=== PATIENT | female | born 1990 | race Caucasian/White ===

== ENCOUNTER 2016-12-10 09:08 | Emergency (ER) | payer OTHER ==
[~2016-12-10] VITALS: Ht 160 cm; Wt 87.0 kg
[2016-12-10 09:12] VITALS: Ht 160 cm; Wt 87.0 kg
[2016-12-10] MEDS ORDERED: ONDANSETRON (ODT) 4 MG TAB ODT STA (10:01)
[2016-12-10] MEDS ORDERED: ONDANSETRON 4 MG INJ IV STA (10:19)
--- NOTE | 2016-12-10 10:19 | ERD ---
ER Documentation Chief Complaint Date/Time DATE: 12/10/16 TIME: 10:15 Chief Complaint abd pain with vomiting x 1 day HPI This 26-year-old female who presents the emergency department today complaining of abdominal pain that started yesterday. Patient states she has had some vomiting today. See she had one loose bowel movement this morning. States she is sexually active and uses oral contraceptives. States she has been told she has a problem in her liver. Patient has not taken any medication for the pain denies any fevers or chills. ROS All systems reviewed and are negative except as per history of present illness. Medications Home Meds Active Scripts Ibuprofen* (Motrin*) 600 Mg Tab, 600 MG PO Q6, #30 TAB Prov:SERENA QUINTANA PA-C 12/10/16 Hydrocodone/Acetaminophen ([place] 5-325 Tablet) 1 Each Tablet, 1 TAB PO Q6H Y for PAIN, #12 TAB Prov:SERENA QUINTANA PA-C 12/10/16 Ondansetron Hcl* (Zofran*) 4 Mg Tablet, 4 MG PO Q6H for NAUSEA AND/OR VOMITING, #30 TAB Prov:SERENA QUINTANA PA-C 12/10/16 Allergies Allergies: Coded Allergies: No Known Allergy (Unverified , 12/10/16) Physical Exam Vitals Vital Signs Date Time Temp Pulse Resp B/P Pulse Ox O2 Delivery O2 Flow Rate FiO2 12/10/16 09:12 97.8 75 18 118/75 98 Physical Exam Const: Obese, no acute distress Head: Atraumatic Eyes: Normal Conjunctiva ENT: Normal External Ears, Nose and Mouth. Neck: Full range of motion..~ No meningismus. Resp: Clear to auscultation bilaterally Cardio: Regular rate and rhythm, no murmurs Abd: Soft, generalized periumbilical and left lower quadrant pain, non distended. Normal bowel sounds no right lower quadrant pain. No right upper quadrant pain Skin: No petechiae or rashes Back: No midline or flank tenderness Ext: No cyanosis, or edema Neur: Awake and alert Psych: Normal Mood and Affect Result Diagram: 12/10/16 1012 12/10/16 1012 Results 24 hrs Laboratory Tests Test 12/10/16 10:09 12/10/16 10:12 Urine Color COLORLESS Urine Clarity CLEAR Urine pH 7.0 Urine Specific [place] 1.004 Urine Ketones NEGATIVEmg/dL Urine Nitrite NEGATIVEmg/dL Urine Bilirubin NEGATIVEmg/dL Urine Urobilinogen NEGATIVEmg/dL Urine Leukocyte Esterase NEGATIVELeu/ul Urine Hemoglobin NEGATIVEmg/dL Urine Glucose NEGATIVEmg/dL Urine Total Protein NEGATIVEmg/dl White Blood Count 10.810^3/ul Red Blood Count 5.2910^6/ul Hemoglobin 14.1g/dl Hematocrit 43.5% Mean Corpuscular Volume 82.2fl Mean Corpuscular Hemoglobin 26.7pg Mean Corpuscular Hemoglobin Concent 32.4g/dl Red Cell Distribution Width 13.7% Platelet Count 05684^3/UL Mean Platelet Volume 10.3fl Neutrophils % 62.2% Lymphocytes % 29.9% Monocytes % 5.3% Eosinophils % 1.8% Basophils % 0.4% Nucleated Red Blood Cells % 0.0/100WBC Neutrophils # 6.710^3/ul Lymphocytes # 3.210^3/ul Monocytes # 0.610^3/ul Eosinophils # 0.210^3/ul Basophils # 0.010^3/ul Nucleated Red Blood Cells # 0.010^3/ul Sodium Level 141mmol/L Potassium Level 4.1mmol/L Chloride Level 100mmol/L Carbon Dioxide Level 26mmol/L Anion Gap 19 Blood Urea Nitrogen 10mg/dl Creatinine 0.64mg/dl Glucose Level 91mg/dl Calcium Level 9.5mg/dl Total Bilirubin 0.7mg/dl Direct Bilirubin 0.00mg/dl Indirect Bilirubin 0.7mg/dl Aspartate Amino Transf (AST/SGOT) 45IU/L Alanine Aminotransferase (ALT/SGPT) 54IU/L Alkaline Phosphatase 104IU/L Total Protein 8.4g/dl Albumin 4.5g/dl Globulin 3.90g/dl Albumin/Globulin Ratio 1.15 Lipase 89U/L Current Medications Medications (Trade) Dose Ordered Sig/Jose Route PRN Reason Start Time Stop Time Status Last Admin Dose Admin Acetaminophen/ Hydrocodone Bitart ([place] (5/325)) 1 tab ONCE ONCE PO 12/10/16 10:30 12/10/16 10:31 DC 12/10/16 10:20 Ondansetron HCl (Zofran Odt) 4 mg ONCE STAT ODT 12/10/16 10:01 12/10/16 10:21 DC 12/10/16 10:19 Ondansetron HCl (Zofran Inj) 4 mg ONCE STAT IV 12/10/16 10:19 12/10/16 10:20 Cancel Procedures/MDM Is a 26-year-old female presents emergency department today complaining of some abdominal pain that started yesterday and vomiting that started today. On physical exam patient had some nonspecific generalized periumbilical and left lower quadrant pain. I did obtain laboratory work as well as a UA and urine Laboratory workup shows no elevated white blood cell count. She is not anemic. Platelets are within normal limits. Electrolytes are within normal limits. Glucose within normal limits. Liver enzymes are within normal limits. Bilirubin is within normal limits. Lipase within normal limits per UA is negative for infection Urine test is negative Patient was given [place] and Zofran here in the emergency department and states that symptoms improved upon recheck. She states that she occasionally gets sharp pain on the left side however it is intermittent. Patient points to the left side of her abdomen. There is no pelvic pain. Patient symptoms at this time is consistent with abdominal pain and vomiting. Low suspicion for acute surgical abdomen given the location of patient's complaints and normal laboratory work and afebrile. Low suspicion for ectopic , tubal ovarian abscess, ovarian torsion Patient given a prescription for [place], Motrin and Zofran for home At this time the patient is stable for discharge and outpatient management. Patient should follow up with their PCP in the next 1-2 days. They may return to the emergency department sooner for any persistent or worsening of symptoms. Patient understood and agreed with the plan. Discussed the patient with Dr. Adams and he is in agreement with plan Departure Diagnosis: Primary Impression: Abdominal pain Abdominal location: left lower quadrant Qualified Code: R10.32 - Left lower quadrant pain Additional Impression: Nausea and vomiting Vomiting type: unspecified Vomiting Intractability: non-intractable Qualified Code: R11.2 - Non-intractable vomiting with nausea, unspecified vomiting type Condition: SERENA Lucero PA-C Dec 10, 2016 10:19
[2016-12-10 10:29] LABS: ADD UMIC NO; UR ASCORBIC ACID NEGATIVE (NEGATIVE); UR BILIRUBIN (Dip) NEGATIVE (NEGATIVE); UR BLOOD (Dip) NEGATIVE (NEGATIVE); UR CLARITY CLEAR (CLEAR); UR COLOR COLORLESS (YELLOW); UR GLUCOSE (Dip) NEGATIVE (NEGATIVE); UR KETONES (Dip) NEGATIVE (NEGATIVE); UR LEUKOCYTE ESTERASE (Dip) NEGATIVE Leu/ul (NEGATIVE); UR NITRITE (Dip) NEGATIVE (NEGATIVE); UR SPECIFIC GRAVITY (Dip) 1.004 (1.003-1.030); UR TOTAL PROTEIN (Dip) NEGATIVE (NEGATIVE); UR UROBILINOGEN (Dip) NEGATIVE (NEGATIVE)
[2016-12-10] MEDS ORDERED: HYDROCODONE/APAP (5/325) TAB PO ONE (10:30)
[2016-12-10 10:34] LABS: ADD SCAN DIFF NO
[2016-12-10 10:39] LABS: BASOPHILS % 0.4 % (0.0-2.0); EOSINOPHILS # 0.2 10^3/ul (0.0-0.5); EOSINOPHILS % 1.8 % (0.0-7.0); HEMATOCRIT 43.5 % (37.0-47.0); HEMOGLOBIN 14.1 g/dl (12.0-16.0); LYMPHOCYTES # 3.2 10^3/ul (0.8-2.9); LYMPHOCYTES % 29.9 % (15.0-51.0); MEAN CORPUSCULAR HEMOGLOBIN 26.7 pg (29.0-33.0); MEAN CORPUSCULAR HGB CONC 32.4 g/dl (32.0-37.0); MEAN CORPUSCULAR VOLUME 82.2 fl (82.0-101.0); MEAN PLATELET VOLUME 10.3 fl (7.4-10.4); MONOCYTE # 0.6 10^3/ul (0.3-0.9); MONOCYTES % 5.3 % (0.0-11.0); NEUTROPHIL # 6.7 10^3/ul (1.6-7.5); NEUTROPHILS % 62.2 % (39.0-77.0); PLATELET COUNT 328 10^3/UL (140-415); RED BLOOD COUNT 5.29 10^6/ul (4.20-5.40); RED CELL DISTRIBUTION WIDTH 13.7 % (11.5-14.5); WHITE BLOOD COUNT 10.8 10^3/ul (4.8-10.8)
[2016-12-10 11:03] LABS: ALBUMIN 4.5 g/dl (3.3-4.9); ALBUMIN/GLOBULIN RATIO 1.15; BILIRUBIN,INDIRECT 0.7 mg/dl (0-1.1); BILIRUBIN,TOTAL 0.7 mg/dl (0.2-1.3); CALCIUM 9.5 mg/dl (8.4-10.2); CREATININE 0.64 mg/dl (0.44-1.00); POTASSIUM 4.1 mmol/L (3.5-5.1); TOTAL PROTEIN 8.4 g/dl (6.1-8.1)
[2016-12-10] MEDS ORDERED: ONDA4TAB8 PO (11:20)
[2016-12-10] MEDS ORDERED: IBUP-1542 PO (11:21)
[2016-12-10] MEDS ORDERED: HYDR-906 PO (11:21)
== END 2016-12-10 12:01 | disposition home or self-care (01) ==
LOC: FTE 09:08
DX: R10.32 Left lower quadrant pain (principal); R11.2 Nausea with vomiting, unspecified
CPT/HCPCS: 80053; 81003; 83690; 85025; Z7610; 99284